=== PATIENT | male | born 1995 | race Caucasian/White ===

== ENCOUNTER 2025-03-21 21:36 | Inpatient (IN) | payer MEDICAID, SELFPAY ==
--- NOTE | 2025-03-21 | ECG_ITS ---
Test Reason : BRADYCARDIA Blood Pressure : */* mmHG Vent. Rate : 54 BPM Atrial Rate : 54 BPM P-R Int : 222 ms QRS Dur : 100 ms QT Int : 428 ms P-R-T Axes : 43 49 39 degrees QTcB Int : 405 ms Sinus bradycardia with marked sinus arrhythmia with 1st degree A-V block Otherwise normal ECG No previous ECGs available Referred By: Ray Jeter Electronically Signed By: Franky Navarro
--- NOTE | ~2025-03-21 | XR_ITS ---
CLINICAL HISTORY: Bradycardia 1 view chest x-ray. Comparison: None Findings: Normal lung volumes. Lungs are clear. No pneumothorax or pleural effusion. Heart size normal. No passive venous congestion. No midline shift or tracheal deviation. No acute fracture. Impression: 1. No acute cardiopulmonary disease. This document has been electronically signed by: Arjun Jade MD on 03/22/2025 06:52:31
[2025-03-21 21:39] VITALS: BP 123/80; PULSE 40; O2SAT 97
[2025-03-21 22:20] VITALS: BP 129/89; PULSE 55; RESP 17; TEMP 36.5; O2SAT 97; BMI 22.9
--- NOTE | 2025-03-21 22:20 | PC.NURSE ---
pt denies SI/HI, pt safety searched by security, no contraband found
--- NOTE | 2025-03-21 22:25 | PC.NURSE ---
this RN assumed care of this pt at this time, pt lethargic and required brisk sternal rub to arouse the pt. Pt oriented x3 (person, place, and time), however d/t extremely somnolence pt is unable to accurately and consistently answer all questions during assessment.
--- NOTE | 2025-03-21 22:35 | ED.GENADULT ---
HPI - General Adult General Chief complaint: ETOH/Substance Use Stated complaint: DRUG USE, LETHARGIC Time Seen by Provider: 03/21/25 21:40 History of Present Illness ED Provider: Ray Jeter MD HPI narrative: Heroin use suspected OD brought in for lethargy per friend. Unclear with the patient received naloxone he was at a gas station is apparently homeless per bystander. Later in the ED the patient's brother arrived endorses that the patient snorts heroin. Related Data Home Medications ?Medication ?Instructions ?Recorded ?Confirmed No Known Home Meds 03/22/25 03/22/25 Allergies Allergy/AdvReac Type Severity Reaction Status Date / Time No Known Allergies (No Known Allergy Verified 03/21/25 22:24 Allergies*) [facility] Past Medical History Medical History Tobacco use disorder Cocaine use Opioid use disorder Social History Social History Smoked in Last 30 Days: Yes Use of substances other than those prescribed or required for medical reasons: Yes Substance Use Type: Crack/Cocaine and Heroin Substance Use Frequency: Daily Substance Use Frequency Other:: cocaine use : occasional Last Used Substance: Hours (ago) Any prior treatment program specific to substance use: Yes Advance Directives: No Advance Directives Information Provided: Yes service: No Physical Exam ED Exam Exam: EXAM: Gen: drowsy, pinpoint pupils, arousable with sternal rub, RR 12 Head: Atraumatic Eyes: Anicteric, Normal conjunctiva. No trauma ENT: Moist mucosa, no pallor. Neck: Supple. Respiratory: RR12, clear lungs Cardiovascular:bradycardic and rhythm. No murmurs or rub. Well perfused periphery, warm extremities. No edema. Abdominal: Soft, no objective distension. No palpable masses or obvious organomegaly. No focal tenderness, no guarding, no rebound tenderness or other peritoneal findings. : No flank tenderness. Neuro: Alert. Gross movement of all extremities intact. Vital signs: See flowsheet Vital Signs: Vital Signs - 24 hr 03/21/25 22:20 03/22/25 00:56 03/22/25 03:01 Temperature 97.7 F 97.8 F 97.6 F Pulse Rate 55 53 49 L Respiratory Rate 17 15 14 Blood Pressure 129/89 107/67 101/62 Pulse Oximetry 97 99 99 Oxygen Delivery Method Room Air Room Air Room Air 03/22/25 05:02 03/22/25 05:53 Temperature 97.6 F Pulse Rate 46 L 37 L Respiratory Rate 15 13 Blood Pressure 110/60 101/57 L Pulse Oximetry 100 99 Oxygen Delivery Method Room Air Room Air BMI result Body Mass Index 22.9 Course Reevaluation(s) Reevaluation #1: Patient with continued bradycardia. Given his likely ingestion of the street drug medetomidine accompanied by other opiates, we will admit him for observation as this has an extremely long half-life and his symptoms could persist for more than 24 hours. Discussed with the hospitalist who agrees with the admission. Time: 06:25 Medications Administered Generic Name Dose Route Start Last Admin Trade Name Freq PRN Reason Stop Dose Admin Enoxaparin Sodium 40 mg 03/22/25 09:00 03/22/25 09:29 Enoxaparin Sodium 40 Mg/0.4 Ml Syringe SUBCUT 40 mg Q24H GLORIA Administration Lactated Ringer's 1,000 mls @ 100 mls/hr 03/22/25 06:15 03/22/25 06:14 Lr IVCONT 03/22/25 16:14 100 mls/hr .Q10H GLORIA Administration Sodium Chloride 3 ml 03/22/25 08:00 03/22/25 07:48 0.9 % Sodium Chloride Flush 3 Ml Syringe IVFLUSH Not Given QSHIFT GLORIA Discontinued Medications Generic Name Dose Route Start Last Admin Trade Name Freq PRN Reason Stop Dose Admin Naloxone HCl 8 mg 03/21/25 22:33 03/22/25 13:02 Naloxone Hcl Nasal Take Home 4 Mg [place] NOSTRILALT 03/21/25 22:34 Not Given ONCE ONE Medical Decision Making Medical Decision Making [facility] Narrative: 30 M with opioid OD. pionpoint pupils, no report of narcan in field. No trauma reported. Omid in 50s, sinus. RR 12, no indication for narcan though may need PRN for resp supression. Plan for close tele and resp monitoring with end tidal. Impression: opioid and likely Alpha 2 contaminant (recent local street heroin supply has had this). Atropine and narcan PRN. Labs ok. Lab Data [facility] Lab Attestation statement: I reviewed the patient's lab results. 03/21/25 22:51 03/21/25 22:51 Labs: Lab Results 03/21/25 Range/Units 22:51 WBC 5.2 (4.8-10.8) X10*3/uL RBC 4.06 L (4.60-5.80) X10*6/uL Hgb 11.5 L (14.0-18.0) g/dl Hct 33.6 L (42.0-52.0) % MCV 82.8 (80.0-98.0) fL MCH 28.3 (27.0-33.0) pg MCHC 34.2 (31.0-36.0) g/dl RDW 12.6 (11.0-16.0) % Plt Count 182 (160-400) X10*3/uL MPV 9.8 (9.4-12.4) fL Immature Gran % (Auto) 0.2 (0.0-0.4) % Neut % (Auto) 58.7 (45-73) % Lymph % (Auto) 32.4 (20-40) % Sullivan % (Auto) 8.3 (2-11) % Eos % (Auto) 0.0 (0-4) % Baso % (Auto) 0.4 (0-2) % Lymph # (Auto) 1.7 (1.2-4.9) X10*3/uL [place] # (Auto) 0.4 (0.1-1.2) X10*3/uL Eos # (Auto) 0.0 (0.0-0.4) X10*3/uL Baso # (Auto) 0.0 (0.0-0.2) X10*3/uL Abs Immat Gran (auto) 0.01 (0.00-0.03) X10*3/uL Absolute Neuts (auto) 3.1 (2.0-8.3) x10*3/uL Absolute Nucleated RBC 0.000 (0.0-0.012) X10*3/uL Nucleated RBC % (auto) 0.0 (0.0-0.2) /100WBC Sodium 138 (135-145) mmol/L Potassium 3.5 (3.3-5.1) mmol/L Chloride 102 (96-108) mmol/L Carbon Dioxide 28 (22-29) mmol/L Anion Gap 12 (12-20) BUN 9 (9-16) mg/dL Creatinine 1.01 (0.5-1.4) mg/dL Estim Creat Clear Calc 99.9 Estimated GFR > 60 Random Glucose 142 H (60-115) mg/dL Calcium 9.5 (8.4-10.2) mg/dL Total Bilirubin 0.5 (0.0-1.0) mg/dL AST 23 (5-37) U/L ALT 27 (0-40) U/L Alkaline Phosphatase 50 (39-117) U/L Total Protein 7.1 (6.5-8.0) g/dL Albumin 4.4 (3.5-5.0) g/dL Salicylates < 5.0 L (15-30) mg/dL Acetaminophen < 3 (<30) mcg/mL Ethyl Alcohol < 10 mg/dL Independent Interpretation I performed an independent interpretation of an: EKG (omid, sinus, B.E.R , LVH) Discharge Plan Discharge Clinical Impression: Opioid use disorder, Bradycardia, drug induced Patient Disposition: Admitted As Inpatient
[2025-03-21 22:56] LABS: MANUAL DIFF FLAG NO
[2025-03-21 22:57] LABS: Hematocrit 33.6 % (42.0-52.0); Hemoglobin 11.5 g/dl (14.0-18.0); Imm Gran Abs Auto 0.01 X10*3/uL (0.00-0.03); Imm Gran Pct Auto 0.2 % (0.0-0.4); Lymphocytes Absolute Auto 1.7 X10*3/uL (1.2-4.9); Mean Corpuscular HGB Conc 34.2 g/dl (31.0-36.0); Mean Corpuscular Hemoglobin 28.3 pg (27.0-33.0); Mean Corpuscular Volume 82.8 fL (80.0-98.0); NRBC Abs Auto 0.000 X10*3/uL (0.0-0.012); NRBC Pct Auto 0.0 /100WBC (0.0-0.2); Platelet Count 182 X10*3/uL (160-400); Red Blood Count 4.06 X10*6/uL (4.60-5.80); White Blood Count 5.2 X10*3/uL (4.8-10.8)
[2025-03-21 23:13] LABS: Acetaminophen LAB < 3 mcg/mL (<30); Alanine Aminotransferase 27 U/L (0-40); Albumin Level 4.4 g/dL (3.5-5.0); Alkaline Phosphatase 50 U/L (39-117); Anion Gap 12 (12-20); Aspartate Amino Transferase 23 U/L (5-37); Blood Urea Nitrogen 9 mg/dL (9-16); Calcium 9.5 mg/dL (8.4-10.2); Carbon Dioxide 28 mmol/L (22-29); Chloride 102 mmol/L (96-108); Creatinine Clr Calc Pharmacy 99.9; Estimated Glomerular Filt Rate > 60; Potassium 3.5 mmol/L (3.3-5.1); Salicylate < 5.0 mg/dL (15-30); Sodium 138 mmol/L (135-145); Total Protein 7.1 g/dL (6.5-8.0)
[2025-03-22] VITALS (11 sets, daily range): BP systolic 101–125; BP diastolic 56–84; PULSE 37–74; RESP 13–22; TEMP 36.4–36.6; O2SAT 98–100
--- NOTE | 2025-03-22 | ECG_ITS ---
Test Reason : BRADYCARDIA Blood Pressure : */* mmHG Vent. Rate : 42 BPM Atrial Rate : 42 BPM P-R Int : 222 ms QRS Dur : 104 ms QT Int : 500 ms P-R-T Axes : 34 61 55 degrees QTcB Int : 417 ms Marked sinus bradycardia with 1st degree A-V block and sinus arrhythmia Abnormal ECG When compared with ECG of 21-Mar-2025 22:30, No significant changes seen Referred By: Vilma Mabry Electronically Signed By: Franky Navarro
--- NOTE | 2025-03-22 04:00 | PC.NURSE ---
at this time pt more alert, responding to verbal stimuli, and following simple commands, VENU complete
--- NOTE | 2025-03-22 05:53 | PC.NURSE ---
pt HR noted to be 37 on the monitor, Jerardo Tyler made aware, full set of VS obtained
[2025-03-22] MEDS: Lactated Ringers 1,000 ML 100 ML IVCONT (06:14)
--- NOTE | 2025-03-22 06:27 | PC.NURSE ---
EKG obtained, seen by CAMERA CONTROL OPERATOR
--- NOTE | 2025-03-22 06:27 | P.HPHOSP_ITS ---
History of Present Illness Date of Service: 03/22/25 Attending physician on admission: Vilma Mabry Chief Complaint: OD Patient is a 30-year-old male with a past medical history significant for polysubstance use disorder, who presented to the ED after being found at a gas station lethargic and concern for an overdose. It is unclear whether the patient received Narcan and he is unaware. He reports last using around 15:00 yesterday with continued grogginess and shortness of breath. He has never overdosed in the past. He uses intranasal heroin and cocaine. He uses heroin 3- 4x daily. He denies any chest pain, nausea, vomiting, palpitations, abd pain or urinary sx. Review of Systems 2 Constitutional: Constitutional: Denies body ache(s), Denies chills, Denies fatigue and Denies headache(s) Eyes: Eyes: Denies change in vision ENT: Denies headache(s), Denies nasal congestion and Denies sore throat Cardiovascular: Cardiovascular: Denies chest pain, Denies syncope, Denies rapid heart rate, Denies leg edema and Reports dyspnea Respiratory: Respiratory: Denies chest congestion, Denies cough, Reports dyspnea and Denies wheezing Gastrointestinal: Gastrointestinal: Denies abdominal pain, Denies diarrhea, Denies nausea and Denies hematemesis Genitourinary: Genitourinary: Denies dysuria and Denies urinary urgency Musculoskeletal: Musculoskeletal: Denies myalgias Integumentary/Breasts: Skin/Breast: Denies rash Neurologic: Denies confusion, Denies syncope and Denies headache(s) Psychiatric: Psychiatric: Denies confusion Endocrine: Endocrine: Denies fatigue Hematologic/Lymphatic: Hematologic/Lymphatic: Denies easy bleeding and Denies easy bruising Allergic/Immunologic: Allergic/Immunologic: Denies wheezing PMFSH Medical History Tobacco use disorder Cocaine use Opioid use disorder Functional capacity: independent ambulation Social History Smoked in Last 30 Days: Yes Use of substances other than those prescribed or required for medical reasons: Yes Substance Use Type: Crack/Cocaine and Heroin Substance Use Frequency: Daily Substance Use Frequency Other:: cocaine use : occasional Last Used Substance: Hours (ago) Any prior treatment program specific to substance use: Yes Advance Directives: No Advance Directives Information Provided: Yes Narrative: uses intranasal cocaine and heroin. heroin 3-4x daily. no hx of OD in past. smokes 3-4 cig/day. no etoh. Meds Allergies Allergy/AdvReac Type Severity Reaction Status Date / Time No Known Allergies (No Known Allergy Verified 03/21/25 22:24 Allergies*) Active Medications: Current Medications Acetaminophen (Acetaminophen 325 Mg Tablet) 975 mg PO Q6H PRN PRN Reason: Pain, Mild 1-3,fever,headache Calcium Carbonate (Calcium Carbonate 750 Mg Tab.Chew) 750 mg PO Q4H PRN PRN Reason: Heartburn Enoxaparin Sodium (Enoxaparin Sodium 40 Mg/0.4 Ml Syringe) 40 mg SUBCUT Q24H GLORIA Lactated Ringer's (Lr) 1,000 mls @ 100 mls/hr IVCONT .Q10H GLORIA Stop: 03/22/25 16:14 Last Admin: 03/22/25 06:14 Dose: 100 mls/hr Loperamide HCl (Loperamide Hcl 2 Mg Capsule) 2 mg PO Q6H PRN PRN Reason: Diarrhea Ondansetron HCl (Ondansetron Hcl 4 Mg/2 Ml Vial) 4 mg IVPUSH Q6H PRN PRN Reason: Nausea and Vomiting Sodium Chloride (0.9 % Sodium Chloride Flush 3 Ml Syringe) 3 ml IVFLUSH QSHIFT GLORIA Trazodone HCl (Trazodone Hcl 50 Mg Tablet) 50 mg PO BEDTIME PRN PRN Reason: Insomnia Physical Exam 2 Vital Signs and Narrative: Vital Signs: Last Vital Signs Temp 97.6 F 03/22/25 05:02 Pulse 37 L 03/22/25 05:53 Resp 13 03/22/25 05:53 BP 101/57 L 03/22/25 05:53 Pulse Ox 99 03/22/25 05:53 O2 Del Method Room Air 03/22/25 05:53 BMI result Body Mass Index 22.9 General: AOx3, no acute distress Resp: CTA bilaterally, no wheezing or crackles CVS: bradycardic, regular rhythm GI: +BS, NT, no distention Skin: Warm, dry Neuro: Cranial nerves II-XII grossly intact bilaterally. Motor grossly intact bilaterally Extremities: No LE edema Psych: Appropriate affect Const: General: No confusion Orientation/consciousness: No confusion Neuro: General: No confusion Results Labs 03/21/25 22:51 03/21/25 22:51 Labs: Laboratory Results - last 24 hr 03/21/25 22:51 MCV 82.8 MCH 28.3 MCHC 34.2 RDW 12.6 Plt Count 182 MPV 9.8 Immature Gran % (Auto) 0.2 Neut % (Auto) 58.7 Lymph % (Auto) 32.4 [place] % (Auto) 8.3 Eos % (Auto) 0.0 Baso % (Auto) 0.4 Lymph # (Auto) 1.7 [place] # (Auto) 0.4 Eos # (Auto) 0.0 Baso # (Auto) 0.0 Abs Immat Gran (auto) 0.01 Absolute Neuts (auto) 3.1 Absolute Nucleated RBC 0.000 Nucleated RBC % (auto) 0.0 Anion Gap 12 Estim Creat Clear Calc 99.9 Estimated GFR > 60 Random Glucose 142 H Calcium 9.5 Total Bilirubin 0.5 AST 23 ALT 27 Alkaline Phosphatase 50 Total Protein 7.1 Albumin 4.4 Salicylates < 5.0 L Acetaminophen < 3 Ethyl Alcohol < 10 Assessment and Plan (1) Overdose: Status: Acute (2) Bradycardia, drug induced: Status: Acute (3) Opioid use disorder: Status: Acute (4) Cocaine use: Status: Acute (5) Tobacco use disorder: Status: Acute Plan Patient is a 30-year-old male with a past medical history significant for polysubstance use disorder, who presented to the ED after being found at a gas station lethargic and concern for an overdose. overdose, bradycardia - HR down to 37, consistently in the 40s - pt last used intranasal heroin around 3pm yesterday - unknown if narcan was administered - Utox pending - EKG with sinus bradycardia and 1st degree AV block - LR 100ml/hr - check VBG and u tox - monitor on tele - COWS Q4H - addiction med consult - discussed dangerous strains of heroin currently out - moniotr cbc and bmp tobacco use disorder - declines NRT - smoking cessation encouraged full code VTE prophy: lovenox Pt with OD and persistent bradycardia requiring admission for at least 2 midnights stay for cardiac monitoring. Quality Stroke Does the patient have a stroke diagnosis?: No VTE Prior VTE?: No VTE Risk Level:: Medical - moderate - high VTE Device Contraindication: Treatment Not Indicated VTE Drug Contraindication: N/A - Med Ordered
[2025-03-22 06:43] LABS: Venous Blood Gas Refer to POC result
[2025-03-22 06:45] LABS: VBG HCO3 28 mmol/L (22-26); VBG O2 % Saturation 79.0 %
--- NOTE | 2025-03-22 07:49 | PC.NURSE ---
Pt resting with eyes closed, responsive to verbal stimuli. Pt is calm, cooperative. Pt denies any pain or discomfort. RR even and unlabored ,denies CP or SOB.
--- NOTE | 2025-03-22 09:33 | PC.NURSE ---
Pt more awake now, A+Ox4, calm, cooperative. HR up in 70s now. Pt was visiting with family at bedside. RR even and unlabored, no visible s/s of distress.
[2025-03-22 10:28] LABS: Cannabinoid Screen Urine Not Detected (Not Detect)
--- NOTE | 2025-03-22 11:07 | HO.ADDICT_ITS ---
History of Present Illness Date of Service: 03/22/2025 Chief Complaint: overdose Reason for Consult: OUD, overdose Sources of Information: patient interviewed and chart reviewed Additional Sources of Information: Patients mother HPI Narrative: Patient is a 30 year old male with history of OUD, who [place] [facility] [place] following opioid overdose. Medically admitted secondary to persistent bradycardia. Patient seen in room 8 of main ED. He is awake, alert, engaged in interview. He reports current use is btwn 1/2 to 2 bundles daily, IN. He denies any history of IVDU. Reports occasional cocaine use. Denies alcohol or benzodiazepine use Denies any other overdoses Started using percocerts relationally at age 24 Age 28 started using fentanyl [facility] admission May 2024 started on MOUD (methadone) while there, however requested to taper off before discharge began using opiates shortly after release. Also reports brief trial with buprenorphine, however did not like the way the program was structured so he did not continue with treatment. He denies any withdrawal sx when seen by t/w Discussed MOUD as a risk reduction/OD prevention strategy--patient declines Discussed current drug supply and reports from patients regarding certain bags. He reports using nipsey hussle, and recalls experiencing visual and auditory hallucinations shortly after using. Advised patient that this has been reported by others in the community with this stamp. Medical Evaluation Reviewed: Yes Review of Systems Constitutional: Reports as per HPI and Reports no additional constitutional complaints Diagnostics Vital Signs (24Hr): Vital Signs - 24 hr 03/21/25 22:20 03/22/25 00:56 03/22/25 03:01 Temperature 97.7 F 97.8 F 97.6 F Pulse Rate 55 53 49 L Respiratory Rate 17 15 14 Blood Pressure 129/89 107/67 101/62 Pulse Oximetry 97 99 99 Oxygen Delivery Method Room Air Room Air Room Air 03/22/25 05:02 03/22/25 05:53 03/22/25 07:48 Temperature 97.6 F Pulse Rate 46 L 37 L 51 Respiratory Rate 15 13 19 Blood Pressure 110/60 101/57 L 108/59 L Pulse Oximetry 100 99 100 Oxygen Delivery Method Room Air Room Air Room Air 03/22/25 09:30 Temperature Pulse Rate 63 Respiratory Rate 18 Blood Pressure 125/84 Pulse Oximetry 100 Oxygen Delivery Method Room Air BMI result Body Mass Index 22.9 Labs 03/21/25 22:51 03/21/25 22:51 Labs: Laboratory Results - last 48 hr 03/21/25 03/22/25 03/22/25 22:51 06:40 10:09 WBC 5.2 RBC 4.06 L Hgb 11.5 L Hct 33.6 L MCV 82.8 MCH 28.3 MCHC 34.2 RDW 12.6 Plt Count 182 MPV 9.8 Immature Gran % (Auto) 0.2 Neut % (Auto) 58.7 Lymph % (Auto) 32.4 [place] % (Auto) 8.3 Eos % (Auto) 0.0 Baso % (Auto) 0.4 Lymph # (Auto) 1.7 [place] # (Auto) 0.4 Eos # (Auto) 0.0 Baso # (Auto) 0.0 Abs Immat Gran (auto) 0.01 Absolute Neuts (auto) 3.1 Absolute Nucleated RBC 0.000 Nucleated RBC % (auto) 0.0 VBG pH 7.37 VBG pCO2 47 VBG pO2 52 VBG HCO3 28 H VBG O2 Saturation 79.0 VBG Base Excess 2.2 Sodium 138 Potassium 3.5 Chloride 102 Carbon Dioxide 28 Anion Gap 12 BUN 9 Creatinine 1.01 Estim Creat Clear Calc 99.9 Estimated GFR > 60 Random Glucose 142 H Calcium 9.5 Total Bilirubin 0.5 AST 23 ALT 27 Alkaline Phosphatase 50 Total Protein 7.1 Albumin 4.4 Salicylates < 5.0 L Urine Opiates Screen POSITIVE H Ur Buprenorphine Scrn Not Detected Ur Oxycodone Screen Not Detected Urine Methadone Screen Not Detected Urine Fentanyl Screen POSITIVE H Acetaminophen < 3 Ur Barbiturates Screen Not Detected Ur Phencyclidine Scrn Not Detected Ur Amphetamines Screen Not Detected U Benzodiazepines Scrn Not Detected Urine Cocaine Screen POSITIVE H U Marijuana (THC) Screen Not Detected Ethyl Alcohol < 10 Mental Status Exam Mental Status Exam Level of Consciousness: Awake, Appropriate and Alert Patient Behavior: Appropriate and Cooperative Affect Description: Blunted Speech Pattern: Clear Hallucinations: None Thought Process: Intact Thought Content: positive for Intact Judgement: Fair Medications Medications Current Medications Acetaminophen (Acetaminophen 325 Mg Tablet) 975 mg PO Q6H PRN PRN Reason: Pain, Mild 1-3,fever,headache Calcium Carbonate (Calcium Carbonate 750 Mg Tab.Chew) 750 mg PO Q4H PRN PRN Reason: Heartburn Enoxaparin Sodium (Enoxaparin Sodium 40 Mg/0.4 Ml Syringe) 40 mg SUBCUT Q24H [facility] Last Admin: 03/22/25 09:29 Dose: 40 mg Lactated Ringer's (Lr) 1,000 mls @ 100 mls/hr IVCONT .Q10H [facility] Stop: 03/22/25 16:14 Last Admin: 03/22/25 06:14 Dose: 100 mls/hr Loperamide HCl (Loperamide Hcl 2 Mg Capsule) 2 mg PO Q6H PRN PRN Reason: Diarrhea Ondansetron HCl (Ondansetron Hcl 4 Mg/2 Ml Vial) 4 mg IVPUSH Q6H PRN PRN Reason: Nausea and Vomiting Sodium Chloride (0.9 % Sodium Chloride Flush 3 Ml Syringe) 3 ml IVFLUSH QSHIFT [facility] Last Admin: 03/22/25 07:48 Dose: Not Given Trazodone HCl (Trazodone Hcl 50 Mg Tablet) 50 mg PO BEDTIME PRN PRN Reason: Insomnia Allergies Allergies Allergy/AdvReac Type Severity Reaction Status Date / Time No Known Allergies (No Known Allergy Verified 03/21/25 22:24 Allergies*) Assessment & Plan Assessment & Plan (1) Opioid use disorder: Status: Acute Code(s): F11.90 - Opioid use, unspecified, uncomplicated Assessment and Plan: * s/p overdose with bradycardia (HR now 50's-60's). No withdrawal sx * declines any intervention at this time, including MOUD or treatment referrals. He states that he is not ready to stop right now. * Overdose prevention discussion, including safe spot, narcan etc. --hospice chaplain to follow up with additional resources * Take home narcan at discharge * Information on family supports provided to mother ([employer]) Total time managing care of this patient today __40__ minutes. [facility] Past Medical History Medical History Tobacco use disorder Cocaine use Opioid use disorder Social History Social History Smoked in Last 30 Days: Yes Use of substances other than those prescribed or required for medical reasons: Yes Substance Use Type: Crack/Cocaine and Heroin Substance Use Frequency: Daily Substance Use Frequency Other:: cocaine use : occasional Last Used Substance: Hours (ago) Any prior treatment program specific to substance use: Yes Advance Directives: No Advance Directives Information Provided: Yes
--- NOTE | 2025-03-22 11:22 | PC.NURSE ---
Patient's mother left her phone number. Her name is Le Melchor and her phone number is [phone]. She said the patient's Dad's is currently away on a cruise.
--- NOTE | 2025-03-22 11:43 | MHC.CM.PN ---
CM met with Patient at bedside, in the ED. Patient is homeless. Patient may benefit from a Care Team Consult R/T Overdose, and a Recovery Team Consult r/t Polysubstance Abuse; CM has initiated and will follow for dc planning. Patient has no PCP(not interested in PCP Pamphlet) and no HCP.
--- NOTE | 2025-03-22 12:14 | PM.DS ---
DS: Providers Provider Date of Service: 03/22/25 Date of admission: 03/22/25 06:03 Date of discharge: 03/22/25 Primary care physician: Unknown Physician Consults: 03/22/25 06:12 Addiction Medicine Provider Routine Consulting Provider: Addiction Covering Reason for consultation: Heroin ovedose Has provider been notified: No DS: Diagnosis Discharge Diagnosis (1) Opioid use disorder: Status: Acute DS: Summary Hospital Course Hospital Course: admission hpi Chief Complaint: OD Patient is a 30-year-old male with a past medical history significant for polysubstance use disorder, who presented to the ED after being [place] station lethargic and concern for an overdose. It is unclear whether the patient received Narcan and he is unaware. He reports last using around 15:00 yesterday with continued grogginess and shortness of breath. He has never overdosed in the past. He uses intranasal heroin and cocaine. He uses heroin 3-4x daily. He denies any chest pain, nausea, vomiting, palpitations, abd pain or urinary sx. hospital course: Patient presented with drug overdose and noted to be bradycardic with HR in 30s and 40s but no sinus pause, Utox is positive opioid, fentanyl, and cocaine.. Treated with IVF and Naloxone, he is presently awake and alert, no sings fo withdrawal. Addiction med saw him but he declined all services. He will be discharged with Naloxone and advised to to avoid illicit substances. Bradycardia has improved HR has been in 40s, 50 60s and 70s, while there was plan to monitor and reassess for discharge, he ended up leaving AMA, after ripping out IV and walking out Final diagnosis Opioid overdose Bradycardia Time Attestation Discharge Coordination Time (in mins): 35 Quality: Safe Use of Opioids Does Pt have an Active Cancer Diagnosis on the Problem List?: No Quality: Stroke Does the patient have a stroke diagnosis?: No Physical Exam Vital Signs: Vital Signs: Last Vital Signs Temp 97.6 F 03/22/25 05:02 Pulse 63 03/22/25 09:30 Resp 18 03/22/25 09:30 BP 125/84 03/22/25 09:30 Pulse Ox 100 03/22/25 09:30 O2 Del Method Room Air 03/22/25 09:30 BMI result Body Mass Index 22.9 General: AO X 3, no acute distress Resp: CTA bilateral CVS: S1,S2,RRR GI: +BS, NT, no distention Skin: No rash Neuro: motor grossly intact Psych: appropriate affect DS: Data Data Completed and Pending Labs on day of discharge: Laboratory Results - last 24 hr 03/21/25 03/22/25 03/22/25 22:51 06:40 10:09 WBC 5.2 RBC 4.06 L Hgb 11.5 L Hct 33.6 L MCV 82.8 MCH 28.3 MCHC 34.2 RDW 12.6 Plt Count 182 MPV 9.8 Immature Gran % (Auto) 0.2 Neut % (Auto) 58.7 Lymph % (Auto) 32.4 [place] % (Auto) 8.3 Eos % (Auto) 0.0 Baso % (Auto) 0.4 Lymph # (Auto) 1.7 [place] # (Auto) 0.4 Eos # (Auto) 0.0 Baso # (Auto) 0.0 Abs Immat Gran (auto) 0.01 Absolute Neuts (auto) 3.1 Absolute Nucleated RBC 0.000 Nucleated RBC % (auto) 0.0 VBG pH 7.37 VBG pCO2 47 VBG pO2 52 VBG HCO3 28 H VBG O2 Saturation 79.0 VBG Base Excess 2.2 Sodium 138 Potassium 3.5 Chloride 102 Carbon Dioxide 28 Anion Gap 12 BUN 9 Creatinine 1.01 Estim Creat Clear Calc 99.9 Estimated GFR > 60 Random Glucose 142 H Calcium 9.5 Total Bilirubin 0.5 AST 23 ALT 27 Alkaline Phosphatase 50 Total Protein 7.1 Albumin 4.4 Salicylates < 5.0 L Urine Opiates Screen POSITIVE H Ur Buprenorphine Scrn Not Detected Ur Oxycodone Screen Not Detected Urine Methadone Screen Not Detected Urine Fentanyl Screen POSITIVE H Acetaminophen < 3 Ur Barbiturates Screen Not Detected Ur Phencyclidine Scrn Not Detected Ur Amphetamines Screen Not Detected U Benzodiazepines Scrn Not Detected Urine Cocaine Screen POSITIVE H U Marijuana (THC) Screen Not Detected Ethyl Alcohol < 10 Discharge Plan Discharge Anticipated Discharge Date/Time: 03/22/25 14:52 Patient Disposition: Left Against Medical Advice Discharge Diagnosis: Opioid overdose [place] [facility] [place] [facility] [place] Group] [facility] [place] Group] Physician,Unknown J [Primary Care Provider, Medical] - 1 Week Discharge Medications: No Action No Known Home Meds Discharge Orders: Discharge Order (Routine); Ordered 03/22/25 Ordered By: Antonio Rollins Diet: Advance to usual diet Activity on Discharge: As tolerated Print Language: Kazakh Care Plan Goals: recovery from opioid overdose and substance use Health Concerns: substance and opioid use disorder Plan of Treatment: Avoid ilicit substances Use Narcan as directed Assessment: see above Patient Instructions: Opioid Use Disorder (ED)
--- NOTE | 2025-03-22 14:47 | PC.NURSE ---
pt out of no were, ripped his Iv out and fully dressed decided he is going home, attempted to talk to the pt about staying or at least waiting for ama paperwork but pt is adimit that he is leaving right now
--- NOTE | 2025-03-22 15:01 | MHC.CM.PN ---
Patient has left AMA.
[2025-03-31 08:05] LABS: Designer Benzodiazepines, UR NEGATIVE; Designer Fentanyl Analogs, UR NEGATIVE; Designer Opioids, UR NEGATIVE; Designer Stimulants, UR NEGATIVE
[2025-03-31 08:07] LABS: Other Illicit Additives, UR POSITIVE; Synthetic Cannabinoids, UR NEGATIVE
== END 2025-03-22 14:53 | disposition left against medical advice (07) | DRG 812 ==
LOC: HO.ED 03-22 05:52 → HO.EDOVER 03-22 06:12
PROVIDERS: Emergency Medicine; Nurse Practitioner Psychiatric/Mental Health; Admitting Provider Internal Medicine; Emergency Provider Emergency Medicine; Visit Provider Internal Medicine
DX: T40.2X1A Poisoning by other opioids, accidental (unintentional), initial encounter (principal); F11.90 Opioid use, unspecified, uncomplicated; F14.90 Cocaine use, unspecified, uncomplicated; F17.210 Nicotine dependence, cigarettes, uncomplicated; F19.90 Other psychoactive substance use, unspecified, uncomplicated; Z71.6 Tobacco abuse counseling; R00.1 Bradycardia, unspecified; I44.0 Atrioventricular block, first degree; Z59.02 Unsheltered homelessness
CPT/HCPCS: 36415; 71045; 80053; 80143; 80179; 80307; 80346; 80352; 80354; 80364; 80371; 80375; 82803; 85025; 93005; 99285; J1650; J7120; S9485

== ENCOUNTER → 2025-03-21 22:30 | Outpatient (BNV) | payer MEDICAID, SELFPAY | PROVIDERS: Admitting Provider Internal Medicine; Emergency Provider Emergency Medicine; Visit Provider Internal Medicine Cardiovascular Disease | DX: I44.0 Atrioventricular block, first degree (principal); I49.9 Cardiac arrhythmia, unspecified; R00.1 Bradycardia, unspecified | CPT/HCPCS: 93010 ==

== ENCOUNTER 2025-03-22 06:03 | Outpatient (BNV) | payer MEDICAID, SELFPAY | END 2025-03-22 06:20 | PROVIDERS: Admitting Provider Internal Medicine; Emergency Provider Emergency Medicine; Visit Provider Radiology Diagnostic Radiology | DX: R06.02 Shortness of breath (principal) | CPT/HCPCS: 71045 ==

== ENCOUNTER 2025-03-22 06:03 | Outpatient (BNV) | payer MEDICAID, SELFPAY | END 2025-03-22 06:09 | PROVIDERS: Admitting Provider Internal Medicine; Emergency Provider Emergency Medicine; Visit Provider Internal Medicine Cardiovascular Disease | DX: I44.0 Atrioventricular block, first degree (principal); I49.9 Cardiac arrhythmia, unspecified; R00.1 Bradycardia, unspecified | CPT/HCPCS: 93010 ==

== ENCOUNTER → 2025-03-22 06:03 | Outpatient (BNV) | payer MEDICAID, SELFPAY | PROVIDERS: Admitting Provider Internal Medicine; Emergency Provider Emergency Medicine; Visit Provider Internal Medicine | DX: T50.901A Poisoning by unspecified drugs, medicaments and biological substances, accidental (unintentional), initial encounter (principal); R00.1 Bradycardia, unspecified; T50.905A Adverse effect of unspecified drugs, medicaments and biological substances, initial encounter; F11.90 Opioid use, unspecified, uncomplicated; F14.90 Cocaine use, unspecified, uncomplicated; F17.200 Nicotine dependence, unspecified, uncomplicated | CPT/HCPCS: 99499 ==

== ENCOUNTER → 2025-03-22 06:03 | Outpatient (BNV) | payer OTHER, SELFPAY | PROVIDERS: Admitting Provider Internal Medicine; Emergency Provider Emergency Medicine; Visit Provider Nurse Practitioner Psychiatric/Mental Health | DX: F11.90 Opioid use, unspecified, uncomplicated (principal) | CPT/HCPCS: 99284 ==